=== PATIENT | female | born 1965 | race Caucasian/White ===

== ENCOUNTER 2019-06-27 15:11 | Inpatient (IN) | payer MEDICAID ==
[~2019-06-27] VITALS: Ht 160 cm; Wt 79.9 kg
[~2019-06-27 15:11] MED LIST: MONT4GRA PO
[2019-06-27] MEDS ORDERED: ALBUTEROL 0.5%, 20ML ONE (15:29)
[2019-06-27] MEDS ORDERED: ALBUTEROL SULFATE 2.5 MG/3 ML NPPB ONE (15:30)
[2019-06-27] MEDS ORDERED: SODIUM CHLORIDE 0.9% 1,000ML IVBOLUS ONE (15:30)
[2019-06-27] MEDS ORDERED: methylPREDNISolone SOD SUCC 125 MG/2 ML IVPB ONE (15:30)
[2019-06-27] MEDS ORDERED: methylPREDNISolone SOD SUCC 125 MG/2 ML ONE ×2 (15:45→17:33)
[2019-06-27 15:54] LABS: BASOPHILS # (AUTO) 0.03 x10^3/uL (0-0.1); BASOPHILS % (AUTO) 0 % (0-1); EOSINOPHILS # (AUTO) 1.25 x10^3/uL (0-0.4); EOSINOPHILS % (AUTO) 14 % (1-7); LYMPHOCYTES # (AUTO) 2.37 x10^3/uL (1-3.4); LYMPHOCYTES % (AUTO) 27 % (22-44); MD NO; MEAN CORPUSCULAR HGB CONC 32.3 g/dL (32.4-35.8); MEAN CORPUSCULAR VOLUME 86.5 fL (80-100); MEAN PLATELET VOLUME 7.4 fL (7.4-10.4); MONOCYTES # (AUTO) 0.64 x10^3/uL (0.2-0.8); MONOCYTES % (AUTO) 7 % (2-9); NEUTROPHILS # (AUTO) 4.49 x10^3/uL (1.8-6.8); NEUTROPHILS % (AUTO) 51 % (42-75); PLATELET COUNT 316 x10^3/uL (130-400); RED CELL DISTRIBUTION WIDTH 16.8 % (9.6-15.2)
[2019-06-27] MEDS ORDERED: ALBUTEROL 0.5%, 20ML NPPB ONE (16:00)
[2019-06-27 16:03] LABS: ALBUMIN 3.4 g/dL (3.4-5.0); ANION GAP 8 mmol/L (5-15); CALCIUM 8.8 mg/dL (8.5-10.1); CHLORIDE 105 mmol/L (98-107); CREATININE 0.76 mg/dL (0.55-1.02)
[2019-06-27] MEDS ORDERED: CEFTRIAXONE PMX 1GM/50ML 50 ML IVPB ONE (16:30)
[2019-06-27] MEDS ORDERED: AZITHROMYCIN 500 MG in SODIUM CHLORIDE 0.9% 250 ML IV ONE (16:30)
[2019-06-27] MEDS: SODIUM CHLORIDE 0.9% 1,000 ML IV SCH (16:44)
--- NOTE | 2019-06-27 16:53 | NUR ---
REPORT RECEIVED FROM ADELSO ESPINO.
[2019-06-27] MEDS: methylPREDNISolone SOD SUCC 40 MG/ML IV SCH (17:00)
[2019-06-27] MEDS ORDERED: CEFTRIAXONE PMX 1GM/50ML 50 ML ONE (17:02)
[2019-06-27] MEDS ORDERED: OMEP-110 PO (17:14)
--- NOTE | 2019-06-27 17:21 | NUR ---
abx infusing at this time. pt tolerated well. pt's aox4. resps even and unlabored.
[2019-06-27] MEDS ORDERED: ENOXAPARIN 40 MG/0.4 ML ONE (17:33)
[2019-06-27] MEDS: ENOXAPARIN 40 MG/0.4 ML SQ SCH (17:35)
--- NOTE | 2019-06-27 17:42 | NUR ---
pt medicated per emar. ns infusing at this time. pt tolerated well.
[2019-06-27] MEDS ORDERED: ALBUTEROL/IPRATROPIUM 2.5MG/0.5MG, 3 ML ONE (18:17)
--- NOTE | 2019-06-27 18:46 | NUR ---
abx and ns infusing at this time. pt tolerated well. pt's aox4. resps even and unlabored.
--- NOTE | 2019-06-27 18:51 | NUR ---
REPORT FROM NISH ESPINO ASSUMING CARE OF PT AT THIS TIME
--- NOTE | 2019-06-27 18:51 | NUR ---
REPORT GIVEN TO JOSUE ESPINO.
--- NOTE | 2019-06-27 19:05 | NUR ---
HOSPITALIST AT BEDSIDE TO ADMIT PT
--- NOTE | 2019-06-27 19:09 | NUR ---
RESPIRATORY AT BEDSIDE TO PUT PT ON BIPAP AT THIS TIME PER SONYA HOSPITALIST
--- NOTE | 2019-06-27 19:29 | NUR ---
TRANASFER AFTER ABG
[2019-06-27] MEDS ORDERED: ALBUTEROL/IPRATROPIUM 2.5MG/0.5MG, 3 ML NPPB PRN (19:30)
[2019-06-27 22:54] VITALS: BP 141/78
[2019-06-27] MEDS: ALBUTEROL/IPRATROPIUM 2.5MG/0.5MG, 3 ML NPPB SCH (23:00)
[2019-06-27 23:07] LABS: RAPID INFLUENZA A Negative (Negative); RAPID INFLUENZA B Negative (Negative)
[2019-06-28] MEDS: ALBUTEROL/IPRATROPIUM 2.5MG/0.5MG, 3 ML NPPB SCH ×6 (00:30→19:00)
[2019-06-28] MEDS: SODIUM CHLORIDE 0.9% 1,000 ML IV SCH (00:53)
[2019-06-28] MEDS: methylPREDNISolone SOD SUCC 40 MG/ML IV SCH ×2 (00:53→07:32)
[2019-06-28 04:18] LABS: BASOPHILS % (AUTO) 0 % (0-1); EOSINOPHILS % (AUTO) 0 % (1-7); LYMPHOCYTES # (AUTO) 0.56 x10^3/uL (1-3.4); LYMPHOCYTES % (AUTO) 9 % (22-44); MD NO; MEAN CORPUSCULAR HEMOGLOBIN 27.7 pg (27.0-34.8); MEAN CORPUSCULAR HGB CONC 31.9 g/dL (32.4-35.8); MEAN CORPUSCULAR VOLUME 86.6 fL (80-100); MEAN PLATELET VOLUME 7.5 fL (7.4-10.4); MONOCYTES # (AUTO) 0.02 x10^3/uL (0.2-0.8); MONOCYTES % (AUTO) 0 % (2-9); NEUTROPHILS # (AUTO) 5.61 x10^3/uL (1.8-6.8); NEUTROPHILS % (AUTO) 91 % (42-75); PLATELET COUNT 273 x10^3/uL (130-400); RED BLOOD COUNT 4.57 x10^6/uL (3.82-5.3); RED CELL DISTRIBUTION WIDTH 17.2 % (9.6-15.2)
[2019-06-28 04:27] LABS: ANION GAP 11 mmol/L (5-15); CALCIUM 8.3 mg/dL (8.5-10.1); CHLORIDE 107 mmol/L (98-107); CREATININE 0.78 mg/dL (0.55-1.02)
[2019-06-28] MEDS: AZITHROMYCIN 500 MG TABLET PO SCH (07:32)
[2019-06-28] MEDS: BUDESONIDE 0.5 MG/2 ML INHA INH SCH ×2 (08:00→20:15)
[2019-06-28] MEDS: CEFTRIAXONE PMX 2GM/50ML 50 ML IV SCH (08:17)
[2019-06-28] MEDS ORDERED: ALBUTEROL SULFATE 2.5 MG/3 ML ONE (08:17)
[2019-06-28] MEDS: methylPREDNISolone SOD SUCC 125 MG/2 ML IVPush SCH ×2 (11:32→17:30)
[2019-06-28] MEDS ORDERED: methylPREDNISolone SOD SUCC 125 MG/2 ML IVPush SCH (12:00)
[2019-06-28 14:39] VITALS: BP 133/81
[2019-06-28] MEDS ORDERED: ALBUTEROL/IPRATROPIUM 2.5MG/0.5MG, 3 ML ONE (15:41)
[2019-06-28] MEDS: ENOXAPARIN 40 MG/0.4 ML SQ SCH (17:29)
[2019-06-28 19:34] VITALS: BP 157/90
[2019-06-29] MEDS: methylPREDNISolone SOD SUCC 125 MG/2 ML IVPush SCH ×4 (00:52→17:55)
[2019-06-29 00:53] VITALS: BP 112/75
[2019-06-29] MEDS: ALBUTEROL/IPRATROPIUM 2.5MG/0.5MG, 3 ML NPPB SCH ×6 (03:00→23:24)
[2019-06-29 05:41] LABS: MEAN CORPUSCULAR HEMOGLOBIN 27.9 pg (27.0-34.8); MEAN CORPUSCULAR HGB CONC 32.2 g/dL (32.4-35.8); MEAN CORPUSCULAR VOLUME 86.7 fL (80-100); MEAN PLATELET VOLUME 8.2 fL (7.4-10.4); PLATELET COUNT 295 x10^3/uL (130-400); RED BLOOD COUNT 4.33 x10^6/uL (3.82-5.3); RED CELL DISTRIBUTION WIDTH 17.9 % (9.6-15.2)
[2019-06-29 05:45] LABS: CHLORIDE 106 mmol/L (98-107)
[2019-06-29 05:52] LABS: ALANINE AMINOTRANSFERASE 39 U/L (12-78); ALBUMIN 3.1 g/dL (3.4-5.0); ALKALINE PHOSPHATASE 94 U/L (45-117); ANION GAP 7 mmol/L (5-15); BILIRUBIN,TOTAL 0.5 mg/dL (0.2-1.0); CALCIUM 8.6 mg/dL (8.5-10.1); CREATININE 0.49 mg/dL (0.55-1.02); TOTAL PROTEIN 6.6 g/dL (6.4-8.2)
[2019-06-29 06:11] LABS: BASOPHILS % (AUTO) 0 % (0-1); EOSINOPHILS % (AUTO) 0 % (1-7); LYMPHOCYTES # (AUTO) 0.63 x10^3/uL (1-3.4); LYMPHOCYTES % (AUTO) 3 % (22-44); MD SCAN; MONOCYTES # (AUTO) 0.14 x10^3/uL (0.2-0.8); MONOCYTES % (AUTO) 1 % (2-9); NEUTROPHILS # (AUTO) 18.18 x10^3/uL (1.8-6.8); NEUTROPHILS % (AUTO) 96 % (42-75)
[2019-06-29] MEDS: BUDESONIDE 0.5 MG/2 ML INHA INH SCH ×2 (06:55→18:48)
[2019-06-29 07:25] VITALS: BP 135/83
[2019-06-29] MEDS: AZITHROMYCIN 500 MG TABLET PO SCH (08:30)
[2019-06-29] MEDS: CEFTRIAXONE PMX 2GM/50ML 50 ML IV SCH (08:30)
[2019-06-29] MEDS: ACETAMINOPHEN 325 MG TABLET PO PRN ×2 (08:43→13:21)
[2019-06-29 13:05] VITALS: BP 111/65
[2019-06-29] MEDS: ENOXAPARIN 40 MG/0.4 ML SQ SCH (17:55)
[2019-06-29 20:13] VITALS: BP 134/87
[2019-06-30 00:43] VITALS: BP 117/77
[2019-06-30] MEDS ORDERED: methylPREDNISolone SOD SUCC 125 MG/2 ML IVPush SCH (02:00)
[2019-06-30] MEDS: ALBUTEROL/IPRATROPIUM 2.5MG/0.5MG, 3 ML NPPB SCH ×4 (02:56→16:18)
[2019-06-30 05:55] LABS: MEAN CORPUSCULAR HEMOGLOBIN 27.7 pg (27.0-34.8); MEAN CORPUSCULAR HGB CONC 32.2 g/dL (32.4-35.8); MEAN PLATELET VOLUME 7.7 fL (7.4-10.4); PLATELET COUNT 275 x10^3/uL (130-400); RED CELL DISTRIBUTION WIDTH 17.9 % (9.6-15.2)
[2019-06-30 05:58] LABS: ANION GAP 8 mmol/L (5-15); CALCIUM 8.3 mg/dL (8.5-10.1); CHLORIDE 106 mmol/L (98-107); CREATININE 0.59 mg/dL (0.55-1.02)
[2019-06-30 06:13] VITALS: BP 143/87
[2019-06-30 06:23] LABS: BASOPHILS % (AUTO) 0 % (0-1); EOSINOPHILS % (AUTO) 0 % (1-7); LYMPHOCYTES # (AUTO) 0.58 x10^3/uL (1-3.4); LYMPHOCYTES % (AUTO) 4 % (22-44); MD SCAN; MONOCYTES # (AUTO) 0.17 x10^3/uL (0.2-0.8); MONOCYTES % (AUTO) 1 % (2-9); NEUTROPHILS # (AUTO) 13.22 x10^3/uL (1.8-6.8); NEUTROPHILS % (AUTO) 95 % (42-75)
[2019-06-30] MEDS ORDERED: AZIT500T10 PO (07:42)
[2019-06-30] MEDS ORDERED: PRED10TA PO (07:42)
[2019-06-30] MEDS ORDERED: ACID1TAB7 PO (07:42)
[2019-06-30] MEDS: BUDESONIDE 0.5 MG/2 ML INHA INH SCH (08:00)
[2019-06-30] MEDS: ACETAMINOPHEN 325 MG TABLET PO PRN ×2 (08:38→14:08)
[2019-06-30] MEDS ORDERED: AZITHROMYCIN 500 MG TABLET PO SCH (09:00)
[2019-06-30] MEDS ORDERED: LACTOBACILLUS CHEW TABLET PO SCH (09:00)
[2019-06-30 12:32] VITALS: BP 127/75
== END 2019-06-30 18:35 | disposition home or self-care (01) | DRG 193 ==
LOC: ED 16:45 → EDIP 16:52 → ED 17:17 → CCU 20:24 → 5SO 06-28 14:33 → 4WST 06-30 03:26
PROVIDERS: ADMIT Internal Medicine Infectious Disease; ATTEND Internal Medicine
PROC: 5A09357 Assistance with Respiratory Ventilation, Less than 24 Consecutive Hours, Continuous Positive Airway Pressure (ICD-10-PCS; principal; 2019-06-27)
PROC: 5A09357 Assistance with Respiratory Ventilation, Less than 24 Consecutive Hours, Continuous Positive Airway Pressure (ICD-10-PCS; 2019-06-28)
DX: J15.9 Unspecified bacterial pneumonia (principal); J96.01 Acute respiratory failure with hypoxia; J45.41 Moderate persistent asthma with (acute) exacerbation; H91.90 Unspecified hearing loss, unspecified ear; G47.33 Obstructive sleep apnea (adult) (pediatric); Z99.81 Dependence on supplemental oxygen; Z79.51 Long term (current) use of inhaled steroids; Z79.899 Other long term (current) drug therapy
CPT/HCPCS: 36415; 36600; 82805; 84145; 87400; 96361; 96365; 96375; 99291; J7626; 71045; 80048; 80053; 82040; 82803; 83605; 83735; 84100; 85025; 86738; 87040; 87081; 87633; 93005; 94640; 94644; 94660; G0378; J0456; J0696; J1650; J2920; J2930; J7030; J7050; J7512